=== PATIENT | male | born 1995 | race Caucasian/White ===

== ENCOUNTER 2018-03-22 02:24 | Emergency (ER) | payer SELFPAY ==
[2018-03-22 02:25] VITALS: BP 131/80
--- NOTE | 2018-03-22 02:31 | ER Report ---
History and Physical Time Seen By MD: 02:26 Hx. of Stated Complaint: PATIENT BROUGHT IN BY [facility] FOR [facility] CLEARENCE, PATIENT ETOH INTOXICATION HPI/ROS CHIEF COMPLAINT: Residential clearance HISTORY OF PRESENT ILLNESS: 22-year-old male brought in by police for [facility] clearance. Patient voices no complaints. He admits to alcohol intoxication. Patient denies any past significant medical history. REVIEW OF SYSTEMS: Respiratory: No cough, no dyspnea. Cardiovascular: No chest pain, no palpitations. Gastrointestinal: No vomiting, no abdominal pain. Musculoskeletal: No back pain. Allergies: Coded Allergies: No Known Drug Allergies (Unverified , 03/22/18) Home Meds No Active Prescriptions or Reported Meds Reviewed Nurses Notes: Yes Old Medical Records Reviewed: Yes Constitutional Vital Sign - Last 24 Hours 03/22/18 02:25 Temp 98.9 Pulse 80 Resp 16 B/P (MAP) 131/80 Pulse Ox 94 O2 Delivery Room Air Physical Exam Vital signs stable, afebrile, pulse ox normal General Appearance: The patient is alert, has no immediate need for airway protection and no current signs of toxicity. Palpation of the head and neck reveal no tenderness or trauma HEENT: Pupils equal and round no injection. TMs normal, oropharynx without dental trauma Respiratory: Chest is non tender, lungs are clear to auscultation. No chest wall tenderness Cardiac: regular rate and rhythm, no murmur Gastrointestinal: Abdomen is soft and non tender, no masses, bowel sounds normal. Musculoskeletal: Neck: Neck is supple and non tender. Extremities have full range of motion and are non tender. No evidence of trauma Skin: No rashes or lesions. [ ] DIFFERENTIAL DIAGNOSIS: After history and physical exam differential diagnosis was considered for alcohol intoxication, polysubstance abuse, [facility] clearance Medical Decision Making ED Course/Re-evaluation ED Course Patient was admitted to an examination room. H&P was done. The differential diagnoses was considered. On clinical examination. Patient has no findings. His vital signs are stable. He is medically cleared for [facility] admission. Decision to Disposition Date: Mar 22, 2018 Decision to Disposition Time: 02:28 Depart Departure Latest Vital Signs Vital Signs Date Time Temp Pulse Resp B/P (MAP) Pulse Ox O2 Delivery O2 Flow Rate FiO2 03/22/18 02:25 98.9 80 16 131/80 94 Room Air Impression: Primary Impression: Medical clearance for incarceration Additional Impression: Alcohol intoxication Condition: Improved Disposition: [facility] TO [facility] New Scripts No Active Prescriptions or Reported Meds Patient Instructions: Alcohol Intoxication (ED) Additional Instructions: Patient medically cleared for [facility] admission Problem Qualifiers Additional Impression: Alcohol intoxication Complication of substance-induced condition: uncomplicated Qualified Codes: F10.920 - Alcohol use, unspecified with intoxication, uncomplicated MORAIMA MOJICA DO Mar 22, 2018 02:31
== END 2018-03-22 02:36 ==
LOC: ER 02:30
DX: F10.920 Alcohol use, unspecified with intoxication, uncomplicated (principal)
CPT/HCPCS: 99281